=== PATIENT | male | born 1945 | race Caucasian/White ===

== ENCOUNTER 2017-06-07 12:31 | Observation (INO) | payer OTHER ==
--- NOTE | 2017-06-07 13:03 | CPEKG ---
Heart Rate: 58 RR Interval: 1034 P-R Interval: 188 QRSD Interval: 100 QT Interval: 384 QTC Interval: 378 P Marion: 30 QRS Marion: -68 T Wave Marion: 24 EKG Severity - ABNORMAL ECG - EKG Impression: SINUS RHYTHM EKG Impression: LEFT ANTERIOR FASCICULAR BLOCK EKG Impression: BORDERLINE R WAVE PROGRESSION, ANTERIOR LEADS Electronically Signed By: Channing Rachel 07-Jun-2017 16:18:55
--- NOTE | 2017-06-07 13:17 | EDPHY ---
HPI/HX/ROS/PE/MDM - Data Points Imaging: Discussed imaging studies w/ loss prevention guard Radiologist Narrative: CHIEF COMPLAINT: Syncopal episode. HPI: This patient is a non-anticoagulated 71 year old male arriving with his for evaluation following a witnessed syncopal episode this morning. He has had episodes of lightheadedness in the past, generally associated with dehydration following endurance horseback rides, but occasionally with no obvious precipitating factors. He was in the kitchen getting breakfast with his and began to feel lightheaded. He stepped backwards to rest against kitchen counter, but blacked out and fell forwards "like a tree" striking his face on the floor. After hitting the floor, his reports he stated "I've had a bad dream". He sustained a bloody nose, bruises to his forehead, cheek, and lip, and bit his tongue in the fall. He was able to get up immediately, and cleaned up the blood with a towel. His gave him three baby aspirin, worried he may have had a stroke. He called his primary care physician, Dr. Choudhury, and the nurse software validation technician suggested he present to the emergency department for further evaluation. He endorses some muscle soreness in his neck and shoulders. He denies fever, nausea, vomiting, chest pain, shortness of breath, or other associated symptoms. REVIEW OF SYSTEMS: Aside from elements discussed in the HPI, a comprehensive 10-point review of systems was reviewed and is negative. PMH: Hypertension (Lisinopril). Takes daily ASA 81mg. SOCIAL HISTORY: Lives in [place]. Has ranch with three horses, completes endurance rides of 50-100 miles. at bedside. PHYSICAL EXAM: General:Patient is alert, in no acute distress. ENT: Abrasion to left tip of tongue. Eyes are normal to inspection. ENT inspection otherwise normal. Neck: Normal inspection. Full range of motion. Respiratory:No respiratory distress. Breath sounds normal bilaterally. Cardiovascular: Regular rate and rhythm. Strong peripheral pulses. Normal cap refill. Abdomen:The abdomen is nontender to palpation. There are no peritoneal signs. There are normal bowel sounds. Back: Normal to inspection. No tenderness to palpation. Skin: Large hematoma and abrasion to left forehead. Ecchymosis and abrasion to left cheek, nose, and lip. Normal color. No rash. Warm and dry. Extremities: Normal appearance. Full range of motion. Neuro: Oriented x3. Normal motor function. Normal sensory function. (Jerrod Martini) ED Course: 71 year old male presents with a large hematoma and abrasion to left forehead, with ecchymosis and abrasions to his left cheek, nose, and lip following a syncopal episode and subsequent fall. He is neurovascularly intact and fully oriented, reading a book. He did take 3 aspirin following his fall. He is otherwise not anticoagulated apart from daily baby aspirin, 81mg. EKG was ordered and interpreted by myself. Please see [employer] system for official reading. Sinus rhythm, rate 58. Left anterior fascicular block, borderline R wave progression in anterior leads. 14:[address] Rojas, radiologist. CT head shows small intracranial bleed. 14:[address] Mayfield, neurosurgeon. 14:33 Reassessed patient, discussed CT findings. The patient is feeling well and prefers to be discharged home. I discussed the importance of observation and the effect of aspirin on clotting. Neurosurgery will consult. 15:00 Neurosurgery PA present. She assessed the patient and spoke with Dr. Mayfield. 15:[address] Rachel at shift change. Pending evaluation by neurosurgery and radiology to discuss management of intracranial hemorrhage. The patient prefers not to be admitted at this point. Plan for cardiology consult as well to evaluate the causes of the patient's syncope. (Jerrod Martini) MDM: The patient has been seen by Neurosurgery and they have signed off. They do not feel that there is a bleed. Cardiology has been asked to consult. Will admit to the medical service for syncope. EKG shows sinus rhythm with bradycardia. No ST changes. Consulted Dr. Plascencia who will admit. Dr. Topete evaluated the patient's echocardiogram and reports to me that it is normal. (Channing Rachel) - Data Points Laboratory Results: Laboratory Results 06/07/17 13:05 06/07/17 13:05 Medications Given: Aspirin (Aspirin) 81 mg PO DAILY [facility] Stop: 12/05/17 08:59 Last Admin: 06/08/17 12:07 Dose: 81 mg Lisinopril (Zestril) 20 mg PO DAILY [facility] Stop: 12/05/17 08:59 Last Admin: 06/08/17 12:07 Dose: 20 mg Metoprolol Tartrate (Lopressor) 12.5 mg PO BID [facility] Stop: 12/05/17 13:29 Last Admin: 06/08/17 13:47 Dose: 12.5 mg Multivitamins/Minerals (Preservision Areds2 Formula) 1 each PO DAILY [facility] Stop: 12/05/17 08:59 Last Admin: 06/08/17 12:07 Dose: 1 each Discontinued Medications Sodium Chloride (Ns) 1,000 mls @ 0 mls/hr IV EDNOW ONE; Wide Open PRN Reason: Protocol Stop: 06/07/17 13:40 Last Admin: 06/07/17 14:20 Dose: 1,000 mls Sodium Chloride (Ns) 1,000 mls @ 3,000 mls/hr IV ONCE ONE Stop: 06/07/17 17:30 Last Admin: 06/07/17 18:25 Dose: 1,000 mls General Time Seen by Provider: 06/07/17 13:07 Initial Vital Signs: Initial Vital Signs Temperature (C) 36.7 C 06/07/17 12:37 Heart Rate 61 06/07/17 12:37 Respiratory Rate 16 06/07/17 12:37 Blood Pressure 157/84 H 06/07/17 12:37 O2 Sat (%) 94 06/07/17 12:37 O2 Delivery Mode Room Air Allergies/Adverse Reactions: No Known Allergies Allergy (Unverified 06/07/17 12:40) Home Medications: Medication Instructions Recorded Aspirin [Aspirin 81mg (*)] 81 mg PO DAILY 06/07/17 C/E/Zn/Cu/OM3/DHA/EPA/LUT/ZEAX 1 each PO DAILY 06/07/17 [Preservision Areds 2 Softgel] Herbals/Supplements -Info Only 1 ea PO DAILY 06/07/17 Lisinopril [Zestril 20 mg (*)] 20 mg PO DAILY 06/07/17 Departure - Departure Disposition: [facility] Acute Clinical Impression: Syncope and collapse Condition: Fair Report Scribed for: Jerrod Martini Report Scribed by: Laisha Fuentes Date of Report: 06/07/17 Time of Report: 13:17 Physician Review and Approval Statement: Portions of this note were transcribed by an ED scribe. I personally performed the history, physical exam, and medical decision making; and confirm the accuracy of the information in the transcribed note.
[2017-06-07] MEDS ORDERED: NS 1,000 ML IV ONE ×2 (13:39→17:11)
[2017-06-07 13:47] LABS: % IMMATURE GRANULYOCYTES 0.7 % (0.0-1.1); ABSOLUTE IMMATURE GRANULOCYTES 0.09 10^3/uL (0.00-0.10); ADD DIFF? NO; ADD MORPH? NO; ADD SCAN? NO; ATYPICAL LYMPHOCYTE FLAG 0 (0-99); FRAGMENT RBC FLAG 0 (0-99); HEMATOCRIT 47.9 % (40.0-51.0); HEMOGLOBIN 16.6 g/dL (13.7-17.5); LEFT SHIFT FLG 0 (0-99); LIPEMIA HEMOLYSIS FLAG 90 (0-99); MEAN CELL HEMOGLOBIN 34.3 pg (27.9-34.1); MEAN CELL HEMOGLOBIN CONCENTR. 34.7 g/dL (32.4-36.7); MEAN PLATELET VOLUME 11.2 fL (8.7-11.7); PLATELET CLUMPS FLAG 20 (0-99); PLATELET COUNT 215 10^3/uL (150-400); RED BLOOD CELL COUNT 4.84 10^6/uL (4.40-6.38); RED CELL DISTRIBUTION WIDTH 12.7 % (11.5-15.2)
[2017-06-07 13:59] LABS: ANION GAP 14 mEq/L (8-16); CALCIUM 10.4 mg/dL (8.5-10.4); CARBON DIOXIDE 23 mEq/l (22-31); CHLORIDE 101 mEq/L (97-110); CREATININE 1.2 mg/dL (0.7-1.3); GLOMERULAR FILTRATION RATE 59; GLUCOSE 96 mg/dL (70-100); POTASSIUM 4.7 mEq/L (3.5-5.2); SODIUM 138 mEq/L (134-144)
[2017-06-07 14:10] LABS: TROPONIN I < 0.012 ng/mL (0.000-0.034)
--- NOTE | 2017-06-07 16:34 | ECHO ---
[id number] [id number] + + [address] : : [place] [address] : : [phone] + + Adult Echocardiographic Report + -----+ :Name: FELICITA JIMENEZ RStudy Date: 06/07/2017 04:04 PM : : Hospital Admission Number: [id number] Mann n: ER: :: 1945 Gender: Male Height: 74 in : :Age: 71 yrs Race: WH Weight: 185 lb : :Reason For Study: Syncope : : BSA: 2.1 meters 2 : + -----+ MMode/2D Measurements & Calculations IVSd: 0.71 cm LVIDd: 5.0 cm FS: 34.2 % Ao root diam: 4.0 cm LVPWd: 1.0 cm LVIDs: 3.3 cm EDV(Teich): 118.2 ml LA dimension: 3.8 cm ESV(Teich): 43.8 ml EF(Teich): 62.9 % Normal Measurement Values: + + :LVIDd (3.5-5.7cm) IVSd (0.6-1.1cm) LVPWd (0.6-1.1cm) Aortic Root (2.0-3.7cm)Left Atrium (1.5-4.0cm): :LV Vol(d) (76-115ml) LV Vol(s) (29-48ml) Ejec Fraction (50-65%)PV Bob (0.6- 1.2m/s) TV Bob (0.4-1.0m/s) : :MV E Bob (0.8-1.0m/s)MV A Bob (0.3-1.0m/s)LVOT Bob (0.7-1.2m/s) Asc Ao Bob ( 0.9-1.8m/s) : + + Doppler Measurements & Calculations MV E max bob: 57.8 cm/sec Ao V2 max: 132.0 cm/sec TR max bob: 282.0 cm/sec MV A max bob: 77.5 cm/sec Ao max P.0 mmHg TR max P.8 mmHg MV E/A: 0.75 RAP systole: 5.0 mmHg RVSP(TR): 36.8 mmHg Left Ventricle The left ventricle is normal in size. There is normal left ventricular wall thickness. Left ventricular systolic function is normal. Ejection Fraction = 70-75%. No regional wall motion abnormalities noted. Right Ventricle The right ventricle is normal in size and function. A moderator band is seen in the right ventricle. Atria The left atrial size is normal. Right atrial size is normal. The interatrial septum is intact with no evidence for an atrial septal defect. Mitral Valve The mitral valve is normal in structure and function. There is no evidence of mitral valve prolapse. There is no mitral valve stenosis. There is trace to mild mitral regurgitation. Tricuspid Valve Normal tricuspid valve. There is mild tricuspid regurgitation. Aortic Valve The aortic valve is trileaflet. The aortic valve opens well. There is no aortic stenosis. There is no aortic insufficiency. Pulmonic Valve The pulmonic valve is normal in structure and function. There is no pulmonic valvular regurgitation. Great Vessels The aortic root is normal size. Pericardium/Pleural Trivial anterior pericardial effusion. Conclusion A complete two-dimensional transthoracic echocardiogram was performed (2D, M-mode, Doppler and color flow Doppler). Left ventricular systolic function is normal. Ejection Fraction = 70-75%. There is trace to mild mitral regurgitation. There is mild tricuspid regurgitation. Trivial anterior pericardial effusion No regional wall motion abnormalities noted. Final Reading Physician: Jose Kelly signed on 06/07/2017 04:33 PM Ordering Physician: José Maria Performed By: Lalita Fuentes RDCS
[2017-06-07] MEDS ORDERED: ONDANSETRON DISINTEGRATING 4 MG TAB PO PRN (17:11)
[2017-06-07] MEDS ORDERED: ONDANSETRON 4 MG/2 ML VIAL IVP PRN (17:11)
[2017-06-07] MEDS ORDERED: ACETAMINOPHEN 325 MG TAB PO PRN (17:11)
--- NOTE | 2017-06-07 18:52 | GCON ---
[f rep st] CONSULTATION EMERGENCY ROOM CONSULTATION DATE OF CONSULTATION: 06/07/2017 TIME SEEN: 2:45 p.m. HISTORY OF PRESENT ILLNESS: The patient is a 71-year-old male who was standing in his kitchen with his this morning, when he had sudden onset of dizziness and lightheadedness, and had a syncopal episode. The patient fell and hit the left side of his head and forehead on the wood floor. He does note one other instance of syncope approximately 1 year ago when he lost consciousness after carrying sukhdeep of hay. His gave him 3 aspirin following the fall, worried that he may have suffered a stroke. Presented to the emergency room for evaluation, and has been neurologically intact. REVIEW OF SYSTEMS: Aside from what was mentioned in the HPI, a comprehensive 10 -point review of systems was reviewed and was negative. PAST MEDICAL HISTORY: Hypertension, multiple orthopedic injuries from horse accidents involving rib fractures and a pelvic fracture. Also from a horse accident liver laceration and a punctured lung, none of which required surgery. PAST SURGICAL HISTORY: Tonsils and adenoids and a prostate biopsy. MEDICATIONS: 1. Lisinopril. 2. Aspirin 81 mg. 3. Multivitamins. FAMILY HISTORY: The patient's father at the age of 60, and had heart disease, as well as a ruptured aorta. Mother at age of 76 from a stroke. 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 He drinks 1-2 glasses of wine each night at dinner. He does not smoke cigarettes. He does not do drugs. ALLERGIES: The patient has no known drug allergies. PHYSICAL EXAM: VITAL SIGNS: Blood pressure is 146/85, heart rate 67, respiratory rate is 18, oxygen saturation is 96% on room air, temperature is 36.7 degrees Celsius. HEENT: Head is normocephalic. He does have a large left frontal hematoma. His pupils are equal, round, and reactive to light. EOMI is intact. Full visual ford by confrontation. NECK: Soft without tenderness with full range of motion with flexion and extension. RESPIRATORY AND CARDIAC: Deferred. ABDOMEN: Soft and nontender. GENITOURINARY AND RECTAL: Deferred. NEUROLOGIC: The patient is awake, alert, oriented to name, place, location, date, time, and situation. Memory is intact to immediate past and current events. Speech no aphasia or dysphonia. Cranial nerves 2-12 are grossly intact. Motor the patient has 5/5 strength in all muscle groups in the bilateral lower and upper extremities, which include the deltoids, biceps, triceps, brachioradialis, wrist flexion and extensors, marking clerk intrinsic fingers, iliopsoas, quadriceps, hamstrings, plantar flexion, dorsiflexion, EHL testing. Sensation is grossly intact to light touch throughout all dermatomal distributions in bilateral lower extremities. Reflexes biceps, triceps, brachioradialis, knee jerk and ankle jerk are 2+ out of 4. Toes are downgoing bilaterally. Atul sign is negative. Babinski is negative, and there is no evidence of clonus. LABORATORY DATA: White blood cell count is 13.46, hemoglobin 16.6, hematocrit 47.9, platelets are 215. CT of the brain performed without contrast demonstrates mild atrophy with a small focus of anterior interhemispheric acute subarachnoid hemorrhage, as well as the left large frontal scalp hematoma. ASSESSMENT AND PLAN: The patient is a 71-year-old male who was brought into the emergency room following a syncopal episode this morning. The patient did have positive loss of consciousness, and a CT of the brain without contrast demonstrates a very small focus of subarachnoid hemorrhage in the interhemispheric region. The patient takes aspirin, and was given 3 additional aspirin following the event this morning by his . From a neurosurgical standpoint, this patient is completely neurologically intact with a GCS of 15. He is in the emergency department reading a novel. A small amount of subarachnoid hemorrhage is present, we feel it would be okay to send this patient home from our standpoint, as his will be with him. We will defer to Medicine and/or Cardiology if they wish to do further evaluation and workup for his unexplained syncopal episode. We will see the patient in the office for follow up in 2-3 weeks. The patient was seen and examined by Dr. Anjel Escalera in the emergency room as well on June 07, 2017, at 2:45 p.m. /[id number]/MODL MTDD
--- NOTE | 2017-06-07 19:32 | GHP ---
[f rep st] HISTORY AND PHYSICAL DATE OF ADMISSION: 06/07/2017 CHIEF COMPLAINT: Syncope versus presyncope. HISTORY OF PRESENT ILLNESS: A 71-year-old male with limited past medical history beyond hypertension , who presents after falling backwards from his counter in the kitchen this morning, nearly losing co nsciousness. He did hit his forehead and left cheek during the fall, which was unbroken. Patient re ports pain, currently a headache associated with the head injury. Denies any preceding chest pain, p alpitations prior to losing partial consciousness. Patient reports a sensation of needing to breathe more deeply right before the episode and reports that occasionally he will have this sensation in th e past, never associated with chest pain or palpitations. The patient denies any changes in his lora l habits. Denies any vision changes, any dysuria. Does have some nocturia and hesitancy. Denies an y myalgias, arthralgias, or GI symptoms. PAST MEDICAL HISTORY: Hypertension, stable dose antihypertensive for many years. SOCIAL HISTORY: Negative for tobacco, alcohol or illicit drugs. FAMILY HISTORY: Negative for cardiac dysrhythmias. REVIEW OF SYSTEMS: A 10-point review of systems is negative, with the exception of that reported in the HPI. PHYSICAL EXAMINATION: VITAL SIGNS: Blood pressure 150/88, heart rate 62, respiratory rate 14, 96% o n room air, 36.7. GENERAL: This is a very healthy-appearing male, with an excoriation on his left s calp and left cheek. HEENT: Pupils are equal, round, reactive to light. Mucous membranes are moist . CARDIAC: Patient has regular rate and rhythm. No murmurs are appreciated. PULMONARY: Good resp iratory effort. Clear to auscultation bilaterally. GASTROINTESTINAL: Positive bowel sounds. ABDOM EN: Soft and nontender. MUSCULOSKELETAL: Negative for any lower extremity edema. SKIN: Negative for any rashes. NEUROLOGIC: Patient is alert and oriented x3. PSYCHIATRIC: He is pleasant and preparation center coordinator perative on interview and examination. DATA: White count 13, hematocrit 47, platelets of 215. Sodium 138, creatinine 1.2. Troponin less t davalos 0.012. EKG, which I personally reviewed and interpreted, shows sinus rhythm with no acute ST-T changes. Head CT, which I personally reviewed and interpreted, shows no acute strokes. Radiology comments on atrophy. Images were reviewed by Neurosurgery, with no concern for subdural or subarachnoid hemorrha ge. ASSESSMENT AND PLAN: This is a 71-year-old male, presenting with syncope. 1. Acute syncope. Patient had near immediate clear communication with his after his partial lo ss of consciousness. Did hit his head profoundly on the floor, having not broken it, and broken the fall himself. The patient was evaluated by Neurosurgery, and cleared. Differential in this instance seems most likely related to a cardiac dysrhythmia, as his troponin and EKG are all negative at pres entation. Agree with admitting to telemetry for observation. Will look for any tachy or bradydysrhy thmias. Patient was seen by Cardiology, and has a stress test ordered for the morning. Likely, if n othing is found on this overnight workup, patient will need long-term monitoring at disposition. 2. Hypertension. Will continue patient's home medications, as his systolics are in the 150s. Will resume those in the morning. 3. Prophylaxis. Patient is ambulating. Will hold on Lovenox because of his recent head trauma. DIET: Cardiac. DISPOSITION: I expect in less than 2 midnights if the patient rules out overnight and has normal car diac stress testing. I discussed the case with the emergency room physician. Patient will be triage d to the PCU for cardiac monitoring and care. /[id number]/MODL
--- NOTE | 2017-06-07 19:53 | GCON ---
[f rep st] CONSULTATION CARDIOLOGY INDICATION FOR CARDIOLOGY CONSULTATION: Syncopal event and abnormal electrocardiogram. HISTORY OF PRESENT ILLNESS: The patient a 71-year-old male who reports history of hypertension and p otential borderline hyperlipidemia, but no other significant cardiac history. He reports he was in h is usual state of health this morning. He was talking to his in their kitchen, when all of a mahan dden felt lightheadedness and fell forward, hitting his head against the kitchen floor. As soon as h e hit the floor, his significant other reports that he immediately woke up, stating that he felt like he had a bad dream. He did sustain injury to his forehead, causing significant bleeding, cheek, lip s, and reports biting his tongue as he hit the floor. He was able to get up immediately, clean up th e floor with a towel. His was concerned about what had happened, made him call his primary care physician, Dr. Choudhury, who recommended coming into the hospital immediately for evaluation. Patient reports at the time of event, he had no episodes of palpitations, denied any. Reported he had been standing close to 20 minutes but symptoms struck fairly quickly. He does report he has had a similar event to this 1 year ago, as he was moving hay in the middle of the day, which his significant other did not know about. Per his significant other, he had mere seconds of loss of consciousness. No se izure activity was noted. Upon his arrival to the emergency department, electrocardiogram was done, which showed sinus rhythm with left anterior fascicular block, poor R-wave progression in anterior le ads. Troponin level was drawn which was normal. He was noted to have a mild elevated white blood ce ll count, but normal hemoglobin and normal H and H. A CT of the head was done, which questioned a sm all focal anterior interhemispheric acute subarachnoid hemorrhage. Neurosurgery was called, Dr. Mati jimenez, and after being reviewed by their service, felt that there was no bleed. Patient reports no rece nt history of fevers, chills, night sweats. Does report that he was out exerting himself yesterday, with moving hay for his horses, felt tired, but no other symptoms post stress. Denies any history of chest pressure, shortness of breath, orthopnea, PND, edema. Denies any symptoms suggestive of TIA o r CVA. Patient with significant cardiac risk factors that include age, sex, hypertension, borderline hyperlipidemia, and family history of coronary artery disease, reporting father had first KS at age 51. PAST MEDICAL HISTORY: The patient reports significant past history of hypertension, which he takes l isinopril for multiple years. Borderline hyperlipidemia. PAST SURGICAL HISTORY: Patient reports no significant past surgical history. FAMILY HISTORY: Patient reports father having 2 MIs between 56 and 60, and did have a ruptured aorti c aneurysm, which he survived surgery, but eventually of sepsis. 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 He is a . He l pamela with his life partner. He has 2 natural children and 3 children from his life partner, and mult iple grandchildren who are all alive and well. He reports drinking 1-2 glasses of alcohol on a daily basis, denies of any smoking history, denies of any illicit drug use. Does report for exercise he [place]. He does participate in long equine races. ALLERGIES: Patient has no known drug allergies. HOME MEDICATIONS: PreserVision AREDS 2 soft gels 1 tablet p.o. daily, lisinopril 20 mg p.o. daily, h erbs and supplements daily, aspirin 81 mg p.o. daily. REVIEW OF SYSTEMS: A 10-point review of systems done on this patient all negative except as mentione d above. PHYSICAL EXAMINATION: GENERAL APPEARANCE: Tall, well-groomed, male. He is alert and orie nted to person, place, time, situation. Appears to be in no acute distress at this time. CURRENT RADHA SIGNS: Blood pressure of 150/88, heart rate 62, respirations 14, saturating 96% on room air. Cu rrently sinus rhythm on the monitor. HEENT: Head is normocephalic. Patient noted with a palm sized hematoma on the left anterior scalp with lacerations. Lips pink, moist mucous membranes. NECK: Tr achea is midline, +2 carotid pulses bilateral, no auscultated bruits, no jugular vein distention. RE SPIRATORY: Lungs clear to auscultation, no rhonchi, rales or wheezes, no accessory muscle use, no in tercostal muscle retraction noted. CARDIAC: Regular rate, regular rhythm, S1, S2, no S3, S4, gallop s, rubs or murmur noted. ABDOMEN: Soft, nontender, bowel sounds x4 quadrants, no organomegaly, no p alpable masses. SKIN: [place], warm, dry, no cyanosis, no clubbing, no peripheral edema. VASCULAR: + 2 carotids bilateral, +2 radials bilateral, +2 dorsal pedal and posterior tibial pulses bilateral. LABORATORY STUDIES: Laboratory studies drawn showed WBC of 13.46, hemoglobin of 16.6, hematocrit of 47.9, platelet count 215. Sodium 138, potassium 4.7, chloride 101, CO2 of 23, BUN 19, creatinine 1.2 , glucose 96, calcium 10.4, troponin of less than 0.012. STUDIES: CT scan of the head as mentioned above, electrocardiogram as mentioned above. Echocardiogr am showing normal LV systolic function with EF of 70% to 75%, trace to mild MR, mild TR, trivial ante rior pericardial effusion, no regional wall motion abnormalities noted. The aortic root was noted to be normal size. ASSESSMENT/PLAN: 1. Syncope while standing. Reporting suddenly, very limited loss of consciousness. Did hit his hea d, causing hematoma and laceration. Per Neurosurgery, no subarachnoid bleeding. Concerning, the pat ient's electrocardiogram does show left anterior fascicular block, concerning about potential pause t hat may have caused this event. The patient does admit previous syncopal event 1 year ago with very limited loss of consciousness. Initial troponin within normal limits, echocardiogram showing normal LV wall motion. Recommend patient be admitted overnight and placed continuous telemetry monitoring f or evaluation for arrhythmias. Repeat electrocardiogram in a.m. Also concerning about potential wit h the patient's cardiac risk factors, I do think it is valid that troponin levels be cycled throughou t the night. Would also like him to undergo stress testing, MPI study in the morning. If no arrhyth mias noted and negative stress testing, consideration of having patient go home on long-term monitor, either 30 day, or consideration of loop recorder implantation. Will have patient also do orthostati c blood pressures this evening. 2. Hypertension: Patient noted history of hypertension. He has been on lisinopril for greater than 10 years. Blood pressure mildly elevated at this time. Will continue on home medications, re-evalu ate in morning. 3. Hyperlipidemia: Patient reporting history of borderline hyperlipidemia, but currently on no medi cation therapy. Reviewing old laboratory studies, most recent fasting lipid panel was done on January 03, 2017, showing total cholesterol 201, LDL 98, HDL of 93. The patient has been encouraged to jen nue healthy diet, routine. Depending on stress testing and testing results, may need to consider sta rting him on statin therapy. Thank you for this consultation. We will be glad to follow along with you. /[id number]/MODL
[2017-06-07 22:23] LABS: COLOR YELLOW; LEUKOCYTE ESTERASE,URINE NEGATIVE (NEGATIVE); NITRITE,URINE NEGATIVE (NEGATIVE)
[2017-06-08 04:47] LABS: % IMMATURE GRANULYOCYTES 0.3 % (0.0-1.1); ABSOLUTE IMMATURE GRANULOCYTES 0.02 10^3/uL (0.00-0.10); ADD DIFF? NO; ADD MORPH? NO; ADD SCAN? NO; ATYPICAL LYMPHOCYTE FLAG 20 (0-99); FRAGMENT RBC FLAG 0 (0-99); HEMOGLOBIN 14.5 g/dL (13.7-17.5); LEFT SHIFT FLG 0 (0-99); LIPEMIA HEMOLYSIS FLAG 90 (0-99); MEAN CELL HEMOGLOBIN 34.8 pg (27.9-34.1); MEAN CELL HEMOGLOBIN CONCENTR. 35.4 g/dL (32.4-36.7); MEAN CELL VOLUME 98.3 fL (81.5-99.8); MEAN PLATELET VOLUME 11.5 fL (8.7-11.7); PLATELET CLUMPS FLAG 10 (0-99); PLATELET COUNT 182 10^3/uL (150-400); RED BLOOD CELL COUNT 4.17 10^6/uL (4.40-6.38); RED CELL DISTRIBUTION WIDTH 12.6 % (11.5-15.2)
[2017-06-08 04:55] LABS: ANION GAP 7 mEq/L (8-16); CALCIUM 8.7 mg/dL (8.5-10.4); CARBON DIOXIDE 22 mEq/l (22-31); CHLORIDE 106 mEq/L (97-110); GLOMERULAR FILTRATION RATE > 60; GLUCOSE 88 mg/dL (70-100); POTASSIUM 4.3 mEq/L (3.5-5.2); SODIUM 135 mEq/L (134-144)
[2017-06-08] MEDS ORDERED: LISINOPRIL 20 MG TAB PO SCH (09:00)
[2017-06-08] MEDS ORDERED: ASPIRIN 81 MG CHEWABLE TAB PO SCH (09:00)
[2017-06-08] MEDS ORDERED: PRESERVISION AREDS2 FORMULA EYE VIT 1 EACH PO SCH (09:00)
[2017-06-08] MEDS ORDERED: Herbals/Supplements -Info Only PO SCH (09:00)
--- NOTE | 2017-06-08 10:09 | ASMTCMCOM ---
CM Note CM Note Notes: CM reviewed chart, pt is a 71 y/o male admitted with snycope versus presyncope. Pt has a pending stress test ordered for this morning. Pt will most likely discharge independent w/ life partner if there are no negative findings on stress test. CM to follow. Date Signed: 06/08/2017 10:08 AM Electronically Signed By:DEVON Rico
--- NOTE | 2017-06-08 12:18 | HOSPPROG ---
Hospitalist Progress Note Assessment/Plan: #Syncope: unclear MPI scan negative. Had some PVCs during stress. Dimer elevated , but negative CTA. Holter to be delivered to home. Carotid U/S with min athlesclerosis #HTN: cont ACEI #HLD: LDL mildly up. Add statin #Disp: DC today. FU cardiology. Subjective: no CP, dizziness today Objective: Vital Signs Temp Pulse Resp BP Pulse Ox 36.6 C 61 14 144/85 H 94 06/08/17 11:38 06/08/17 11:38 06/08/17 11:38 06/08/17 11:38 06/08/17 11:38 Laboratory Results 06/08/17 03:29 06/08/17 03:29 06/07/17 06/08/17 06/09/17 05:59 05:59 05:59 Intake Total 2425 Output Total 200 Balance 2225 - Physical Exam Constitutional: no apparent distress Eyes: other (hematoma above left eye) Ears, Nose, Mouth, Throat: moist mucous membranes Cardiovascular: regular rate and rhythym Respiratory: no respiratory distress Gastrointestinal: normoactive bowel sounds Genitourinary: no bladder fullness Skin: warm Musculoskeletal: full muscle strength Neurologic: AAOx3, CN II-XII Intact Psychiatric: interacting appropriately ICD10 Worksheet Patient Problems: Problems Problem Status Onset Syncope and collapse Acute
[2017-06-08] MEDS ORDERED: METOPROLOL TARTRATE 25 MG TAB PO SCH (13:30)
--- NOTE | 2017-06-08 13:39 | CPR ---
[f rep st] NONINVASIVE CARDIAC PROCEDURE REPORT STUDY PERFORMED: Exercise treadmill of exercise treadmill MPI study. INDICATION FOR PROCEDURE: Syncopal event, abnormal electrocardiogram, with noted left anterior fasci cular block and poor R-wave progression in anterior leads. PRE: After obtaining informed consent, the patient was placed on electrocardiogram. Initial EKG leoncio wing sinus rhythm, leftward axis, poor R-wave progression in anterior leads, no significant ST or T-w ave abnormalities suggesting of ischemia. Patient denies of any chest pain, shortness of breath, or symptoms suggesting of ischemia. Initial blood pressure 110/70, saturation 94% on room air. STRESS: The patient was placed on exercise treadmill test, following standard Pipe protocol the chris nolasco findings: 1. The patient exercised for 8 minutes 5 seconds. 2. 9.3 METs. 3. He obtained a heart rate of 139 beats per minute, which 94% of his MPHR. 4. Patient had no significant ST shifts at peak exercise suggesting of ischemia. 5. The patient had no symptoms of ischemia during stress testing. 6. Patient was noted to have occasional PVCs and PACs during stress. It was noted during recovery t hat he did have a 6-beat run of premature ventricular contraction bigeminy. 7. BP variations at rest 110/70, peak 160/74. 8. SpO2 remained greater than 90% throughout the testing. 9. Test was stopped due to maximum effort. 10. Nunn treadmill score of 8, placing him at low cardiovascular risk. RECOVERY: Patient recovered for 5 minutes, remained asymptomatic, again with noted 6-beat run of pre mature ventricular contraction bigeminy. Asymptomatic. Final blood pressure 136/76. IMPRESSION: A 71-year-old male was admitted yesterday for syncopal event, with 2nd syncopal event wi thin a year. Denies any chest pain or symptoms suggesting of ischemia. No EKG changes at peak exerc ise suggesting of ischemia, Nunn treadmill score of 8, placing him at low cardiovascular risk. Elizabeth l BP response. Noted 1 episode of bigeminal premature ventricular contractions for 6 beats. The pat ient was asymptomatic. The patient will be sent down to nuclear medicine for post MPI stress imaging at this time. /[id number]/MODL
--- NOTE | 2017-06-08 13:58 | PDCARPN ---
Cardiology Progress Note Chief Complaint: patient reports face is sore from trauma by fall. Assessment/Plan: Assessment: 71-year-old with significant past history of hypertension borderline hyperlipidemia. Admitted yesterday for syncopal event brief LOC. Initial CT of the head question a small focal anterior subarachnoid hemorrhage, after being review by Neurosurgery felt there was no bleeding. Initial electrocardiogram showing sinus rhythm with left anterior fascicular block. Echocardiogram done 06/07 showing normal LV systolic function EF of 70 75%, motion abnormalities trace to mild MR mild TR, trivial anterior pericardial effusion. Aortic root normal size. Troponin levels overnight have been negative x2. Continuous cardiac monitoring shows that the patient has been in sinus rhythm occasional premature ventricular contraction noted 1 triplet during the evening. Patient was asymptomatic. Underwent ETT/MPI today, ETT showing no EKG changes at peak exercise suggesting of ischemia. Was noted during recovery to have a 6 beat episode of bigeminal PVCs. Patient is asymptomatic. MPI study showing no signs of ischemia. Orthostatic blood pressures done this morning showing no significant changes with position. Carotid ultrasound showing mild plaque, but no flow disease. Patient reporting no episodes of lightheadedness, near-syncope or syncopal since hospital visit. Denies of any chest pressure or shortness of breath. Plan: 1. Syncope: No malignant arrhythmias have been noted be potential causes recent syncopal event. No signs of cardiac ischemia on stress testing. Was questionable bigeminal PVCs on stress test, and 1 triplet overnight. Will start patient on low-dose metoprolol at 12.5 mg p.o. twice daily. Will also schedule him to have a 30 day monitor as an outpatient. Patient has been warned to not drive, swim, climb ladders, take baths until testing is completed. Agree with hospital services, patient have a D-dimer done before discharge to assure PE as potential cause. 2. Non flow limiting carotid artery disease: Ultrasound showing mild plaque, reviewing patient's last fasting lipid panel, noting total cholesterol 201, LDL 98, HDL 93, triglycerides 51. Would recommend that with new diagnosis mild carotid artery disease, LDL be less than 70. Will start him on atorvastatin at 20 mg q.day, repeat fasting lipid panel in 6-8 weeks. Patient has been resumed on home aspirin therapy. 3. Hypertension: Blood pressure appears adequately controlled with home dose of lisinopril. If D-dimer is negative, plan for patient be discharged home. Patient has a followup appointment set the next [address] [facility]. Patient also told that he has any episodes of lightheadedness, near-syncope syncopal event, chest pain, shortness of breath. He needs to return to the hospital immediately. 06/08/17 13:55 Subjective: patient denies of any chest pain, shortness of breath, palpitations, lightheadedness, near-syncope or syncopal events since hospital admission. Reviewed/Discussed With: hospitalist (Dr Gardner), other (Dr Topete) Objective: Vital Signs (8 Hrs) Temp Pulse Pulse Pulse Resp BP BP 06/08/17 11:38 36.6 C 61 14 144/85 H 06/08/17 08:00 89 59 L 135/81 H 06/08/17 07:51 36.8 C 54 L 13 130/74 H BP BP Pulse Ox 06/08/17 11:38 94 06/08/17 08:00 143/79 H 147/74 H 06/08/17 07:51 93 Intake/Output (24 Hrs) 06/07/17 06/08/17 06/09/17 05:59 05:59 05:59 Intake Total 2425 Output Total 200 Balance 2225 Intake: Oral (ml) 425 IV Infused (ml) 2000 Ns 1,000 ml @ 3000 mls/hr 2000 IV ONCE ONE Rx#: [id number] Output: Urine (ml) 200 Toilet 200 Other: Weight 83 kg Number of Voids Toilet 2 Result Diagrams: 06/08/17 03:29 06/08/17 03:29 Cardiac Labs: Cardiac Lab Results (72 Hrs) 06/08/17 06/08/17 06/08/17 03:29 03:29 03:29 WBC 7.34 RBC 4.17 L Hgb 14.5 Hct 41.0 MCV 98.3 MCH 34.8 H MCHC 35.4 RDW 12.6 Plt Count 182 MPV 11.5 Neut % (Auto) 56.8 Lymph % (Auto) 23.6 Haralson % (Auto) 16.2 H Eos % (Auto) 2.7 Baso % (Auto) 0.4 Nucleat RBC Rel Count 0.0 Absolute Neuts (auto) 4.17 Absolute Lymphs (auto) 1.73 Absolute Monos (auto) 1.19 H Absolute Eos (auto) 0.20 Absolute Basos (auto) 0.03 Absolute Nucleated RBC 0.00 Immature Gran % 0.3 Immature Gran # 0.02 Sodium 135 Potassium 4.3 Chloride 106 Carbon Dioxide 22 Anion Gap 7 L BUN 14 Creatinine 1.0 Estimated GFR > 60 Glucose 88 Calcium 8.7 D Magnesium 1.8 Troponin I Urine Color Urine Appearance Urine pH Ur Specific Somers Urine Protein Urine Ketones Urine Blood Urine Nitrate Urine Bilirubin Urine Urobilinogen Ur Leukocyte Esterase Urine Glucose 06/07/17 06/07/17 22:00 21:55 WBC RBC Hgb Hct MCV MCH MCHC RDW Plt Count MPV Neut % (Auto) Lymph % (Auto) [place] % (Auto) Eos % (Auto) Baso % (Auto) Nucleat RBC Rel Count Absolute Neuts (auto) Absolute Lymphs (auto) Absolute Monos (auto) Absolute Eos (auto) Absolute Basos (auto) Absolute Nucleated RBC Immature Gran % Immature Gran # Sodium Potassium Chloride Carbon Dioxide Anion Gap BUN Creatinine Estimated GFR Glucose Calcium Magnesium Troponin I < 0.012 Urine Color YELLOW Urine Appearance CLEAR Urine pH 5.0 Ur Specific Somers 1.024 Urine Protein NEGATIVE Urine Ketones 1+ H Urine Blood NEGATIVE Urine Nitrate NEGATIVE Urine Bilirubin NEGATIVE Urine Urobilinogen NEGATIVE Ur Leukocyte Esterase NEGATIVE Urine Glucose NEGATIVE - Physical Exam Constitutional: WDWN, healthy appearing, no apparent distress Ears, Nose, Mouth, Throat: moist mucous membranes Cardiovascular: regular rate and rhythm, no murmurs, pulses symmetric bilat, No jugular vein distention, No carotid bruit Peripheral Pulses: 1+: dorsalis-pedis (R), dorsalis-pedis (L), 2+: carotid (R), carotid (L) Respiratory: clear to auscultate bilat, no crackles Gastrointestinal: normoactive bowel sounds, no masses Skin: warm, no edema, No no abrasions ( Forehead from fall.) Neurologic: AAOx3 Psychiatric: cooperative, interactive, following commands ICD10 Worksheet Patient Problems: Problems Problem Status Onset Syncope and collapse Acute
[2017-06-08] MEDS ORDERED: IOPAMIDOL (ISOVUE 370) 100 ML BTL IV ONE (15:00)
[2017-06-08 16:20] VITALS: BP 114/70; PULSE 53; RESP 23; TEMP 98.7; O2SAT 92
--- NOTE | 2017-06-08 16:56 | GDS ---
[f rep st] DISCHARGE SUMMARY DISCHARGE DIAGNOSES: 1. Syncope. 2. Hypertension. 3. Mild hyperlipidemia. HISTORY OF PRESENT ILLNESS: Patient is a 71-year-old male with history of hypertension who presented after falling backwards from his counter in the kitchen with near loss of consciousness. He hit his forehead and left cheek during the fall. He denied any prodromal chest pain, palpitations, sweating, or nausea. He felt like he needed to breathe deeply right before the episode. Denies fevers, chills, or sweats. Has some nocturia and hesitancy. HOSPITAL COURSE BY PROBLEM: 1. Acute presyncope vs syncope: unclear if actually had LOC. Underwent myocardial perfusion scan that was negative. There was no evidence of arrhythmia. D-dimer was elevated, no PE on CTA. It was noted he had PVCs during stress test. Cardiology started metoprolol 12.5 mg BID; Holter monitor delivered to his home. Was advised not to drive or swim without others around. Carotid ultrasound with minimal atherosclerotic disease. 2. Hyperlipidemia: Start a statin. 3. Fall: Again, secondary to syncopal or near syncopal event. Was evaluated by Neurosurgery. No acute fractures. DISPOSITION: Patient is stable for discharge home. NEW MEDICATIONS: Lipitor 20 mg daily, metoprolol 12.5 mg twice daily. FOLLOWUP: 1. Holter monitor to be delivered to his home. 2. Follow up in Cardiology. /[id number]/MODL MTDD
--- NOTE | 2017-06-08 17:49 | ASDISCHSUM ---
Discharge Information Plan Status:Home with No Needs Medically Cleared to Leave: Discharge Date:06/08/2017 04:45 PM CM D/C Disposition:Home, Routine, Self-Care ADT D/C Disposition:Home, Routine, Self-Care Projected Discharge Date:06/10/2017 12:00 AM Transportation at D/C:Family Discharge Delay Reason: Follow-Up Date:06/10/2017 12:00 AM Discharge Slot: Final Diagnosis: Placement Information Patient Contact Information Contact Name:SAMMIE Relationship:Life Partner Address:[address] [place] Alternate Phone: [facility]/Zip Code:[place] [address] Email: Financial Information Financial Class: Primary Plan Desc:MEDICARE OUTPATIENT Primary Plan Number:[id number] Secondary Plan Desc:GURPREET Secondary Plan Number:[id number] Assessment Information [facility] CM Progress Note CM Note CM Note Notes: CM reviewed chart, pt is a 71 y/o male admitted with snycope versus presyncope. Pt has a pending stress test ordered for this morning. Pt will most likely discharge independent w/ life partner if there are no negative findings on stress test. CM to follow. Date Signed: 06/08/2017 10:08 AM Electronically Signed By:DEVON Rico Intervention Information Intervention Type:*Incorrect Registration Date of Service:06/08/2017 11:42 AM Patient Type:Inpatient Staff Member:SLADE Ramírez Susan Hours: Discipline: Severity: Comment: Intervention Type:*EDWIGE-Signed Date of Service:06/08/2017 02:45 PM Patient Type:Observation Staff Member:Chasity Maguire Hours: Discipline: Severity: Comment:
[2017-06-09] MEDS ORDERED: ATORVASTATIN CALCIUM 20 MG TAB PO SCH (09:00)
== END 2017-06-08 16:45 | disposition home or self-care (01) ==
LOC: OBSVTOIN 17:11 → INTOOBSV 17:11 → F2W 17:30
PROVIDERS: ADMIT Hospitalist; ATTEND Internal Medicine
DX: R55 Syncope and collapse (principal); S06.6X1A Traumatic subarachnoid hemorrhage with loss of consciousness of 30 minutes or less, initial encounter; W22.09XA Striking against other stationary object, initial encounter; Y92.010 Kitchen of single-family (private) house as the place of occurrence of the external cause; Y99.8 Other external cause status; I49.3 Ventricular premature depolarization; I10 Essential (primary) hypertension; E78.5 Hyperlipidemia, unspecified
CPT/HCPCS: 70450; 71275; 78452; 92523; 93005; 93017; 93306; 93880; 96360; 97165; 99285; A9500; G8987; G8988; G8989; G9165; G9166; G9167; Q9967

== ENCOUNTER 2018-05-17 10:58 | Emergency (ER) | payer OTHER ==
[2018-05-17 11:23] LABS: PLATELET COUNT 183 10^3/uL (150-400)
--- NOTE | 2018-05-17 11:26 | EDPHY ---
HPI/HX/ROS/PE/MDM Narrative: CHIEF COMPLAINT: Dizziness HPI: The patient is a 72 year-old male with history of an unknown arrhythmia, hypertension - no history of CVA. He has been in his usual state of health until yesterday afternoon, when he developed lack of balance, abnormal vision, nausea worse when turning head from side to side, and loss of taste (food and wine did not taste normal). He denies headache, dark spots in vision, fall, chest pain, neck pain, numbness. The patient went to sleep early and found his symptoms were improved upon lying flat. This morning he felt fine but symptoms recurred when he got up. He spoke to a nurse at his associate engineer office who told him to go to the ED. REVIEW OF SYSTEMS: Aside from elements discussed in the HPI, a comprehensive 10-point review of systems was reviewed and is negative. PMH:Prior arrhthymia with negative recent monitor. HTN. 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 . PHYSICAL EXAM: General:Patient is alert, in no acute distress. ENT:Eyes are normal to inspection. ENT inspection normal. No nystagmus. Neck: Normal inspection. Full range of motion. Respiratory:No respiratory distress. Breath sounds normal bilaterally. Cardiovascular: Regular rate and rhythm. Strong peripheral pulses. Normal cap refill. Abdomen:The abdomen is nontender to palpation. There are no peritoneal signs. There are normal bowel sounds. Back: Normal to inspection. No tenderness to palpation. Skin: Normal color. No rash. Warm and dry. Extremities: Normal appearance. Full range of motion. Neuro: Oriented x3. Normal motor function. Normal sensory function. Normal finger to nose bilaterally. Normal heel to bhat. ED Course: Noncontrast head CT as well as CTA of the head and neck are negative for acute abnormality. On re-evaluation, the patient feels better, but his gait is still somewhat off balance. I have ordered an MRI. 2:50 p.m.: MRI it was read by Dr. Francis as negative for acute stroke or other abnormality. MDM: This patient presents with vertiginous like symptoms, but given absence of any nystagmus and associated taste in visual symptoms, we performed an extensive workup which is thankfully negative. The etiology of his symptoms unclear-this may represent early Riley's palsy or possibly just vertigo. I think he is safe for outpatient follow-up and I have referred him to Neurology. On re-evaluation, the patient is sitting in bed reading a book, appearing very comfortable. He is asymptomatic. - Data Points Imaging Results: Imaging Impressions Head CT 05/17/18 11:15 Impression: 1. No acute intracranial process. 2. Mild paranasal sinus disease. Findings and recommendations discussed with Jerrod Martini MD at 1212 hour, 05/17/2018. Head CTA 05/17/18 11:15 Impression: Ostial calcification at the origin of the left vertebral artery. Otherwise, unremarkable CT angiogram. Stenoses are calculated using [place] Symptomatic Carotid Endarterectomy Trial (NASCET) criteria. Neck CTA 05/17/18 11:15 Impression: Ostial calcification at the origin of the left vertebral artery. Otherwise, unremarkable CT angiogram. Stenoses are calculated using [place] Symptomatic Carotid Endarterectomy Trial (NASCET) criteria. Laboratory Results: Laboratory Results 05/17/18 11:10 05/17/18 11:10 05/17/18 05/17/18 05/17/18 11:12 11:10 11:10 WBC RBC Hgb Hct MCV MCH MCHC RDW Plt Count MPV Neut % (Auto) Lymph % (Auto) [place] % (Auto) Eos % (Auto) Baso % (Auto) Nucleat RBC Rel Count Absolute Neuts (auto) Absolute Lymphs (auto) Absolute Monos (auto) Absolute Eos (auto) Absolute Basos (auto) Absolute Nucleated RBC Immature Gran % Immature Gran # PT 13.7 SEC SEC (12.0-15.0) INR 1.03 (0.83-1.16) Sodium 139 mEq/L mEq/L (135-145) Potassium 4.3 mEq/L mEq/L (3.3-5.0) Chloride 102 mEq/L mEq/L (97-110) Carbon Dioxide 27 mEq/l mEq/l (22-31) Anion Gap 10 mEq/L mEq/L (8-16) BUN 18 mg/dL mg/dL (7-23) Creatinine 1.1 mg/dL mg/dL (0.7-1.3) Estimated GFR > 60 Glucose 151 mg/dL H mg/dL (70-100) Calcium 9.6 mg/dL mg/dL (8.5-10.4) POC Troponin I 0.01 ng/mL ng/mL (0.00-0.08) Troponin I < 0.012 ng/mL ng/mL (0.000-0.034) 05/17/18 11:10 WBC 8.78 10^3/uL 10^3/uL (3.80-9.50) RBC 5.02 10^6/uL 10^6/uL (4.40-6.38) Hgb 16.8 g/dL g/dL (13.7-17.5) Hct 49.5 % % (40.0-51.0) MCV 98.6 fL fL (81.5-99.8) MCH 33.5 pg pg (27.9-34.1) MCHC 33.9 g/dL g/dL (32.4-36.7) RDW 13.3 % % (11.5-15.2) Plt Count 183 10^3/uL 10^3/uL (150-400) MPV 11.2 fL fL (8.7-11.7) Neut % (Auto) 77.6 % H % (39.3-74.2) Lymph % (Auto) 14.6 % L % (15.0-45.0) [place] % (Auto) 6.2 % % (4.5-13.0) Eos % (Auto) 1.1 % % (0.6-7.6) Baso % (Auto) 0.3 % % (0.3-1.7) Nucleat RBC Rel Count 0.0 % % (0.0-0.2) Absolute Neuts (auto) 6.81 10^3/uL H 10^3/uL (1.70-6.50) Absolute Lymphs (auto) 1.28 10^3/uL 10^3/uL (1.00-3.00) Absolute Monos (auto) 0.54 10^3/uL 10^3/uL (0.30-0.80) Absolute Eos (auto) 0.10 10^3/uL 10^3/uL (0.03-0.40) Absolute Basos (auto) 0.03 10^3/uL 10^3/uL (0.02-0.10) Absolute Nucleated RBC 0.00 10^3/uL 10^3/uL (0-0.01) Immature Gran % 0.2 % % (0.0-1.1) Immature Gran # 0.02 10^3/uL 10^3/uL (0.00-0.10) PT INR Sodium Potassium Chloride Carbon Dioxide Anion Gap BUN Creatinine Estimated GFR Glucose Calcium POC Troponin I Troponin I Point of Care Test Results: Chemistry 05/17/18 11:12 POC Troponin I 0.01 ng/mL ng/mL (0.00-0.08) General Time Seen by Provider: 05/17/18 11:06 Initial Vital Signs: Initial Vital Signs Temperature (C) 36.5 C 05/17/18 10:59 Heart Rate 47 L 05/17/18 10:59 Respiratory Rate 16 05/17/18 10:59 Blood Pressure 138/70 H 05/17/18 10:59 O2 Sat (%) 97 05/17/18 10:59 O2 Delivery Mode Room Air Allergies/Adverse Reactions: No Known Allergies Allergy (Unverified 06/07/17 12:40) Home Medications: Medication Instructions Recorded Aspirin [Aspirin 81mg (*)] 81 mg PO DAILY 06/07/17 C/E/Zn/Cu/OM3/DHA/EPA/LUT/ZEAX 1 each PO DAILY 06/07/17 [Preservision Areds 2 Softgel] Herbals/Supplements -Info Only 1 ea PO DAILY 06/07/17 Lisinopril [Zestril 20 mg (*)] 20 mg PO DAILY 06/07/17 Atorvastatin Calcium [Lipitor 20 20 mg PO DAILY #30 tab 06/08/17 mg (*)] Metoprolol Tartrate [Lopressor 25 12.5 mg PO BID #30 tab 06/08/17 mg (*)] Departure - Departure Disposition: Home, Routine, Self-Care Clinical Impression: Vertigo Condition: Good Instructions: Vertigo (ED) Additional Instructions: Follow-up with a neurologist on Sunday. Return to the emergency department for headache, vision changes, difficulty walking, difficulty speaking or other concerns. Referrals: Benita Choudhury MD [Primary Care Provider] - As per Instructions Channing Sood DO [Doctor of Osteopathy] - As per Instructions
[2018-05-17] MEDS ORDERED: IOPAMIDOL (ISOVUE 370) 100 ML BTL IV ONE (11:33)
[2018-05-17 11:37] LABS: INR 1.03 (0.83-1.16); PROTIME(PATIENT) 13.7 SEC (12.0-15.0)
--- NOTE | 2018-05-17 14:46 | CPEKG ---
Test Reason : OPEN Blood Pressure : / mmHG Vent. Rate : 047 BPM Atrial Rate : 047 BPM P-R Int : 194 ms QRS Dur : 113 ms QT Int : 429 ms P-R-T Axes : 029 -58 019 degrees QTc Int : 380 ms Sinus bradycardia Left anterior fascicular block Confirmed by Jerrod Martini ([id number]) on 05/17/2018 2:46:03 PM Referred By: Confirmed By:Jerrod Martini
[2018-05-17 15:09] VITALS: BP 151/77
== END 2018-05-17 15:09 | disposition home or self-care (01) ==
DX: R42 Dizziness and giddiness (principal); I10 Essential (primary) hypertension
CPT/HCPCS: 70450; 70496; 70498; 70551; 93005; 99285; Q9967; 84484-PO